=== PATIENT | female | born 1995 | race Caucasian/White ===

== ENCOUNTER 2017-10-13 11:45 | Emergency (ER) | payer BC ==
[~2017-10-13] VITALS: Ht 165.1 cm; Wt 59.5 kg
[~2017-10-13 11:45] MED LIST: FLUV25TA3 PO
[2017-10-13 11:47] VITALS: BP 118/76
[2017-10-13 12:21] LABS: URINE HCG NEGATIVE (NEG)
[2017-10-13 12:22] LABS: CLARITY,URINE SLIGHTLY CLOUDY (Clear); COLOR,URINE STRAW (Yellow); GLUCOSE, URINE NEGATIVE (Neg); KETONES,URINE NEGATIVE (Neg); LEUKOCYTE ESTERASE ,URINE TRACE (Neg); NITRITES, URINE NEGATIVE (Neg); OCCULT BLOOD,URINE NEGATIVE (Neg); PROTEIN,URINE NEGATIVE (Neg); UROBILINOGEN,URINE 0.2 E.U/dL (0.2-1.0)
[2017-10-13 12:26] LABS: UA COLLECTION TYPE CLN CATCH MIDSTREAM
[2017-10-13 12:28] LABS: BACTERIA,URINE NONE SEEN /HPF (Neg); RBC,URINE NONE SEEN /HPF (0-2); SQUAMOUS EPITHELIAL CELL,UR FEW /LPF (FEW); WBC,URINE NONE SEEN /HPF (0-4)
[2017-10-13 12:31] LABS: BASOPHILS % (AUTO) 0.3 % (0-1); EOSINOPHILS # (AUTO) 0.1 X10'3 (0-0.9); EOSINOPHILS % (AUTO) 1.2 % (0-6); HEMATOCRIT 37.7 % (35.0-45.0); HEMOGLOBIN 12.7 g/dl (12.0-16.0); LYMPHOCYTES # (AUTO) 1.4 X10'3 (1.1-4.8); LYMPHOCYTES % (AUTO) 19.5 % (21-51); MEAN CORPUSCULAR HEMOGLOBIN 26.8 PG (27.0-31.0); MEAN CORPUSCULAR HGB CONC 33.7 % (33.0-36.5); MEAN CORPUSCULAR VOLUME 79.5 FL (78-98); MEAN PLATELET VOLUME 7.7 FL (7.4-10.4); MONOCYTES # (AUTO) 0.4 X10'3 (0-0.9); MONOCYTES % (AUTO) 5.2 % (2-12); NEUTROPHILS # (AUTO) 5.3 X10'3 (1.8-7.7); NEUTROPHILS % (AUTO) 73.8 % (42-75); PLATELET COUNT 227 X10'3 (140-440); RED BLOOD COUNT 4.74 X10'6 (4.20-5.60); RED CELL DISTRIBUTION WIDTH 15.1 % (11.5-14.5); WHITE BLOOD COUNT 7.2 X10'3 (4.5-11.0)
[2017-10-13 12:34] LABS: URINE AMPHETAMINE SCREEN NEGATIVE (Neg); URINE BARBITUATE SCREEN NEGATIVE (Neg); URINE BENZODIAZEPINES SCREEN NEGATIVE (Neg); URINE CANNABINOID SCREEN NEGATIVE (Neg); URINE COCAINE SCREEN NEGATIVE (Neg); URINE METHADONE SCREEN NEGATIVE (Neg); URINE OPIATE SCREEN NEGATIVE (Neg); URINE PHENCYCLIDINE SCREEN NEGATIVE (Neg)
[2017-10-13 12:36] LABS: ALANINE AMINOTRANSFERASE 44 U/L (12-78); ALBUMIN 4.3 G/DL (3.4-5.0); ALBUMIN/GLOBULIN RATIO 1.3 (1.1-1.5); ALKALINE PHOSPHATASE 98 IU/L (46-116); ANION GAP 10 (8-16); ASPARTATE AMINO TRANSFERASE 29 U/L (10-37); BILIRUBIN,TOTAL 0.2 MG/DL (0.1-1.0); BLOOD UREA NITROGEN 10 MG/DL (7-18); BUN/CREATININE RATIO 10.5 (6.6-38.0); CALCIUM 9.1 MG/DL (8.5-10.1); CHLORIDE 106 MMOL/L (99-107); CREATININE 0.95 MG/DL (0.40-0.90); ETHANOL < 0.010 GM/DL (0.0-0.010); GLUCOSE 98 MG/DL (70-104); SODIUM 143 MMOL/L (135-145); TOTAL CARBON DIOXIDE 26.9 MMOL/L (24-32); TOTAL PROTEIN 7.5 G/DL (6.4-8.2); eGFR 74 ML/MIN
[2017-10-13 13:42] LABS: ACETAMINOPHEN < 2.0 UG/ML (10-30)
[2017-10-13] MEDS ORDERED: FLUV50TA3 PO (16:33)
== END 2017-10-13 14:51 | disposition home or self-care (01) ==
LOC: ER 11:46
DX: R45.851 Suicidal ideations (principal); F41.9 Anxiety disorder, unspecified; F32.9 Major depressive disorder, single episode, unspecified; Z88.8 Allergy status to other drugs, medicaments and biological substances; Z79.899 Other long term (current) drug therapy
CPT/HCPCS: 36415; 80053; 80305; 80320; 80329; 81001; 81025; 84443; 85025; 99284

== ENCOUNTER 2017-10-13 13:05 | Inpatient (IN) | payer BC ==
[~2017-10-13] VITALS: Ht 165.1 cm; Wt 58.7 kg
[2017-10-13] MEDS ORDERED: magnesium hydroxide 30ml (MOM) UD suspension PO PRN (15:50)
[2017-10-13] MEDS ORDERED: mag hydrox/Alum hydrox/simeth 30ml oral suspension PO PRN (15:50)
[2017-10-13] MEDS ORDERED: acetaminophen 325mg tablet PO PRN ×2 (15:50)
[2017-10-13] MEDS ORDERED: FLUV50TA3 PO (16:33)
[2017-10-13 20:00] VITALS: BP 98/63
[2017-10-13] MEDS: temazepam 15mg capsule PO PRN (21:31)
[2017-10-14 08:00] VITALS: BP 102/54
[2017-10-14] MEDS ORDERED: fluvoxamine 25 MG tablet PO SCH ×3 (08:00→21:00)
[2017-10-14] MEDS ORDERED: non-formulary drug (invega 1.5 MG) PO ONE (09:55)
[2017-10-14 19:00] VITALS: BP 114/66
[2017-10-14] MEDS ORDERED: traZODone 50mg tablet PO SCH (21:00)
[2017-10-15 07:37] VITALS: BP 109/61
[2017-10-15] MEDS ORDERED: non-formulary drug (invega 1.5 MG) PO SCH (08:00)
[2017-10-15] MEDS: fluvoxamine 25 MG tablet PO SCH ×2 (08:58→21:18)
[2017-10-15] MEDS ORDERED: PALIPERIDONE 3 MG TAB.ER.24 PO ONE (12:30)
[2017-10-15] MEDS: INVEGA 1.5 MG PO SCH (16:53)
[2017-10-15 20:00] VITALS: BP 96/58
[2017-10-15] MEDS: temazepam 15mg capsule PO PRN (21:18)
[2017-10-16 07:27] VITALS: BP 99/60
[2017-10-16] MEDS: fluvoxamine 25 MG tablet PO SCH ×2 (07:58→20:29)
[2017-10-16] MEDS: INVEGA 1.5 MG PO SCH (07:58)
[2017-10-16] MEDS ORDERED: PALIPERIDONE 3 MG TAB.ER.24 PO SCH (08:00)
[2017-10-16 20:43] VITALS: BP 101/63
[2017-10-16] MEDS ORDERED: hydrOXYzine 25 MG tablet PO PRN (21:30)
[2017-10-17 08:00] VITALS: BP 113/69
[2017-10-17] MEDS: fluvoxamine 25 MG tablet PO SCH ×2 (08:15→20:54)
[2017-10-17] MEDS: INVEGA 1.5 MG PO SCH (08:15)
[2017-10-17 20:00] VITALS: BP 111/69
[2017-10-18 08:00] VITALS: BP 101/62
[2017-10-18] MEDS: INVEGA 1.5 MG PO SCH (08:01)
[2017-10-18] MEDS: fluvoxamine 25 MG tablet PO SCH ×2 (08:02→20:24)
[2017-10-18] MEDS ORDERED: paliperidone 1.5mg ER tablet PO ONE (12:15)
[2017-10-18 19:10] VITALS: BP 102/59
[2017-10-19] MEDS ORDERED: FLUV100C2 PO (07:23)
[2017-10-19] MEDS: fluvoxamine 25 MG tablet PO SCH (07:23)
[2017-10-19] MEDS ORDERED: PALI3TAB5 PO (07:23)
[2017-10-19] MEDS ORDERED: HYDR-3686 PO (07:23)
[2017-10-19 08:00] VITALS: BP 114/69
[2017-10-19] MEDS ORDERED: paliperidone 1.5mg ER tablet PO ONE (08:00)
[2017-10-19] MEDS ORDERED: PALIPERIDONE 3 MG TAB.ER.24 PO SCH (08:00)
== END 2017-10-19 10:45 | disposition home or self-care (01) | DRG 882 ==
LOC: ADULT MH 13:05
PROVIDERS: ADMIT Psychiatry & Neurology Psychiatry; ATTEND Psychiatry & Neurology Psychiatry
DX: F42.9 Obsessive-compulsive disorder, unspecified (principal); R45.851 Suicidal ideations; F50.9 Eating disorder, unspecified; F32.9 Major depressive disorder, single episode, unspecified; F41.9 Anxiety disorder, unspecified; I25.10 Atherosclerotic heart disease of native coronary artery without angina pectoris; Z83.3 Family history of diabetes mellitus; Z82.49 Family history of ischemic heart disease and other diseases of the circulatory system; Z88.8 Allergy status to other drugs, medicaments and biological substances
CPT/HCPCS: 87070; 93005; 93306; Q0177